=== PATIENT | female | born 1985 | race Caucasian/White ===

== ENCOUNTER → 2017-10-07 | Outpatient (CLI) | payer BC ==
[~2017-10-07] MED LIST: IBU600 PO
--- NOTE | 2017-10-07 17:08 | RADIOLOGY IMAGING REPORT ---
FACILITY: [facility] - [place] PATIENT NAME: Lexie Hernandez : 1985 MR: [id number] V: [id number] EXAM DATE: ORDERING PHYSICIAN: JOSE TORRES TECHNOLOGIST: [place] [facility] [place] Lexie Hernandez : 1985 Visit/Account:[id number] Date of Sevice: 10/07/2017 Exam type: THYROID BIOPSY FINE NEEDLE ASP History: Complex left thyroid nodule Comparison: September 30, 2017. Findings: Informed consent was obtained. The left-sided patient's neck was prepped and draped in usual sterile fashion. Local anesthesia was accomplished with 1% lidocaine. Under sonographic guidance three 25- gauge FNA biopsies were obtained through the complex nodule in the left lobe of the thyroid gland. S amples were given to the pathology laboratory director for processing. The procedure was accomplished witho ut apparent complication. IMPRESSION: 1. Successful sonographically guided FNA biopsy of the complex left thyroid nodule. Report Dictated By: Renea Bey MD at 10/07/2017 5:03 PM Report E-Signed By: Renea Bey MD at 10/07/2017 5:04 PM WSN:[email or web address]
== END ==
LOC: US 00:29
PROVIDERS: ATTEND Nurse Practitioner Psychiatric/Mental Health
DX: E04.2 Nontoxic multinodular goiter (principal)
CPT/HCPCS: 10022; 76942; 88104; 88172

== ENCOUNTER → 2018-11-08 | Outpatient (CLI) | payer BC, OTHER ==
--- NOTE | 2018-11-08 15:53 | RADIOLOGY IMAGING REPORT ---
FACILITY: [facility] - [place] PATIENT NAME: Lexie Francois : 1985 MR: [id number] V: [id number] EXAM DATE: ORDERING PHYSICIAN: JOSE TORRES TECHNOLOG[place] [facility] [place] : 1985 Visit/Account:[id number] Date of Sevice: 11/08/2018 EXAMINATION: Ultrasound thyroid HISTORY: Bilateral thyroid nodules COMPARISON: Thyroid biopsy (left sided nodule) October 07, 2017, thyroid ultrasound September 30 7 FINDINGS: Thyroid size: Right lobe: 4.6 x 1.6 x 1.4 cm Left lobe: 4.1 x 2.0 x 2.2 cm Isthmus: 0.1 cm Thyroid heterogeneity: Homogeneous parenchyma. Thyroid vascularity: Normal. Thyroid nodules: Right lobe: * Sub-cm mid and lower pole nodules are noted which do not meet the size criteria for FNA Left lobe: * Complex, partially cystic nodule again noted within the mid and lower pole measuring 2.9 x 2.0 x 1 .8 cm Isthmus: * None discrete. Additional findings: None. IMPRESSION: 1. Multinodular thyroid goiter. The complex nodule within the left lobe the thyroid has been previou sly biopsied. The remaining thyroid nodules do not meet the criteria for FNA. REFERENCE: 2015 [place] [employer] Management Guidelines for Adult Patients with Thyroid Nodules and D ifferentiated Thyroid Cancer: The [place] [employer] Guidelines Task Force on Thyroid Nodul es and Differentiated Thyroid Cancer. SONOGRAPHIC PATTERNS: * Benign: Purely cystic nodules (no solid component); estimated risk of malignancy <1 percent; no bi opsy recommended. * Very Low Suspicion: Spongiform or partially cystic nodules without any of the sonographic features described in low, intermediate, or high suspicion patterns; estimated risk of malignancy <3 percent; consider FNA at > 2 cm (Observation without FNA is also a reasonable option). * Low Suspicion: Isoechoic or hyperechoic solid nodule, or partially cystic nodule with eccentric so lid areas, without microcalcification, irregular margin or ETE (extra-thyroidal extension), or taller than wide shape; estimated risk of malignancy 5-10 percent; recommend FNA at >1.5 cm. * Intermediate Suspicion: Hypoechoic solid nodule with smooth margins without microcalcifications, E TE (extra-thyroidal extension), or taller than wide shape; estimated risk of malignancy 10-20 percent ; recommend FNA at > 1 cm. * High Suspicion: Solid hypoechoic nodule or solid hypoechoic component of a partially cystic nodule with one or more of the following features: irregular margins (infiltrative, microlobulated), microc alcifications, taller than wide shape, rim calcifications with small extrusive soft tissue component, evidence of ETE (extra-thyroidal extension); estimated risk of malignancy >70-90 percent; recommend FNA at > 1 cm. NOTES: * Although a sonographically suspicious subcentimeter thyroid nodule without evidence of extrathyroi angela extension or sonographically suspicious lymph nodes may be observed with close sonographic follow -up rather than pursuing immediate FNA, patient age and preference may modify decision-making. * A > 50% interval increase in nodule volume and/or development of new suspicious sonographic featur es are felt to be a valid reasons for potential re-aspiration of a nodule previously shown to have be nign FNA cytology. Report Dictated By: Kwesi Samayoa DO at 11/08/2018 3:44 PM Report E-Signed By: Kwesi Samayoa DO at 11/08/2018 3:48 PM WSN:[email or web address]
== END ==
LOC: RAD 15:00
PROVIDERS: ATTEND Nurse Practitioner Psychiatric/Mental Health
DX: E04.2 Nontoxic multinodular goiter (principal)
CPT/HCPCS: 76536